=== PATIENT | female | born 1975 | race Two or more races ===

== ENCOUNTER 2024-07-31 10:35 | Emergency (ER) | payer OTHER ==
[~2024-07-31] VITALS: Ht 157.5 cm; Wt 52.2 kg
[2024-07-31] MEDS ORDERED: 0.9 % SODIUM CHLORIDE 1,000 ML IV SCH (11:45)
== END 2024-07-31 13:15 | disposition home or self-care (01) ==
LOC: ER 10:50
DX: T40.715A Adverse effect of cannabis, initial encounter (principal)